=== PATIENT | male | born 1960 | race Caucasian/White ===

== ENCOUNTER → 2024-06-13 08:49 | Outpatient (REF) | payer MEDICARE, OTHER, SELFPAY | LOC: RAD 08:49 | PROVIDERS: ATTENDING PHYSICIAN Family Medicine | DX: Z87.891 Personal history of nicotine dependence (principal) | CPT/HCPCS: 71271 ==

== ENCOUNTER → 2024-11-01 07:19 | Outpatient (REF) | payer MEDICARE, OTHER, SELFPAY | LOC: MRI 3T 07:19 | PROVIDERS: ATTENDING PHYSICIAN Physician Assistant Medical; FAMILY PHYSICIAN Family Medicine | DX: M23.90 Unspecified internal derangement of unspecified knee (principal) | CPT/HCPCS: 73721 ==

== ENCOUNTER → 2025-04-28 19:09 | Outpatient (REF) | payer MEDICARE, OTHER, SELFPAY | LOC: MRI 3T 19:09 | PROVIDERS: ATTENDING PHYSICIAN Physician Assistant Medical; FAMILY PHYSICIAN Family Medicine | DX: M54.16 Radiculopathy, lumbar region (principal) | CPT/HCPCS: 72148 ==

== ENCOUNTER → 2025-07-23 08:07 | Outpatient (REF) | payer MEDICARE, OTHER, SELFPAY | LOC: RAD 08:07 | PROVIDERS: ATTENDING PHYSICIAN Family Medicine | DX: F17.210 Nicotine dependence, cigarettes, uncomplicated (principal); Z72.0 Tobacco use | CPT/HCPCS: 71271 ==